=== PATIENT | male | born 1960 | race Caucasian/White ===

== ENCOUNTER → 2016-06-26 | Outpatient (CLI) | payer BC ==
[~2016-06-26] MED LIST: REGADENOSON 0.4 MG/5 ML DISP.SYRIN. IV ONE
== END | disposition home or self-care (01) ==
LOC: PCVCIMAG 08:04
PROVIDERS: ATTEND Internal Medicine Cardiovascular Disease
DX: I25.10 Atherosclerotic heart disease of native coronary artery without angina pectoris (principal); I25.2 Old myocardial infarction; R07.9 Chest pain, unspecified; I10 Essential (primary) hypertension
CPT/HCPCS: 78452; 93017; A9500; G0463; J2785

== ENCOUNTER → 2018-08-30 | Outpatient (CLI) | payer BC ==
--- NOTE | 2018-08-30 13:42 | PCVCIMAG ---
APPROVED REPORT Study performed: 08/30/2018 12:54:03 EXAM: Comprehensive 2D, Doppler, and color-flow Echocardiogram Patient Location: Echo lab Status: routine BSA: 2.22 HR: 80 bpmBP: 122/80 mmHg Rhythm: NSR Other Information Study Quality: Adequate Risk Factors: Cardiac Risk Factors: HTN, hlp Indications CAD 2D Dimensions IVSd: 10.65 (7-11mm) LVDd: 51.05 mm PWd: 10.14 (7-11mm)Ascending Ao: 30.47 (22-36mm) LVDs: 38.08 (25-40mm) Left Atrium: 45.20 (27-40mm) Aortic Root: 30.99 mm LV Single Plane 4CH: 60.61 % LV Single Plane 2CH: 69.12 % Biplane EF: 63.9 % Volumes Left Atrial Volume (Systole) Single Plane 4CH: 71.59 mLSingle Plane 2CH: 85.39 mL LA ESV Index: 37.00 mL/m2 Aortic Valve AoV Peak Ozzy.: 1.62 m/s AO Peak Gr.: 10.43 mmHgLVOT Max P.51 mmHg LVOT Max V: 1.17 m/s Mitral Valve E/A Ratio: 1.7 MV Decel. Time: 188.03 ms MV E Max Ozzy.: 0.88 m/s MV A Ozzy.: 0.53 m/s IVRT: 65.74 ms Pulmonary Valve PV Peak Ozzy.: 1.12 m/sPV Peak Gr.: 5.03 mmHg Pulmonary Vein P Vein S: 0.39 m/sP Vein A: 0.42 m/s P Vein D: 0.55 m/sP Vein A Dur.: 114.2 msec P Vein S/D Ratio: 0.71 Tricuspid Valve TR Peak Ozzy.: 2.63 m/s TR Peak Gr.: 27.76 mmHg Left Ventricle The left ventricle is normal size. There is normal LV segmental wall motion. There is normal left ventricular wall thickness. Left ventricular systolic function is normal. The left ventricular ejection fraction is within the normal range. LVEF is 60-65%. Grade I - abnormal relaxation pattern. Right Ventricle The right ventricle is normal size. The right ventricular systolic function is normal. Atria Left atrium is mildly dilated. Right atrium is mildly dilated. Aortic Valve The aortic valve is normal in structure. No aortic regurgitation is present. There is no aortic valvular stenosis. Mitral Valve The mitral valve is normal in structure. Mild mitral regurgitation. No evidence of mitral valve stenosis. Tricuspid Valve The tricuspid valve is normal in structure. Mild tricuspid regurgitation with PAP of 35 mmHg. Pulmonic Valve The pulmonary valve is normal in structure. Trace pulmonic regurgitation. Great Vessels The aortic root is normal in size. IVC is normal in size and collapses >50% with inspiration. Pericardium There is no pericardial effusion. There is no pleural effusion. <Conclusion> The left ventricle is normal size. There is normal left ventricular wall thickness. Left ventricular systolic function is normal. Grade I - abnormal relaxation pattern. The right ventricle is normal size. Left atrium is mildly dilated. Right atrium is mildly dilated. The aortic valve is normal in structure. Mild mitral regurgitation. Mild tricuspid regurgitation with PAP of 35 mmHg.
== END | disposition home or self-care (01) ==
LOC: PCVCIMAG 12:48
PROVIDERS: ATTEND Internal Medicine Cardiovascular Disease
DX: I08.1 Rheumatic disorders of both mitral and tricuspid valves (principal); I25.10 Atherosclerotic heart disease of native coronary artery without angina pectoris; I10 Essential (primary) hypertension
CPT/HCPCS: 93306

== ENCOUNTER → 2019-02-22 | Outpatient (CLI) | payer BC ==
--- NOTE | 2019-02-22 15:48 | PCVCIMAG ---
APPROVED REPORT Study performed: 02/22/2019 14:24:28 Exam: Stress Echocardiogram Indication: CAD s/p PCI,Stent to RCA,, Dyspnea Patient Location: Echo lab Stress Nurse: Gala Benavidez RN Room #: 2 Status: routine Ht: 5 ft 11 in HR: 75 bpm BP: 142/86 mmHg Rhythm: NSR Medical History Medical History: CAD s/p stent, HTN, Hyperlipidemia Cardiac Risk Factors: HTN, Hyperlipidemia, FHX of CAD Previous Cardiac Procedures: PCI Pretest Chest Pain Characteristics: No chest pain Exercise History: Physically active Procedure The patient underwent an Exercise Stress Test using the Parviz Protocol. Blood pressure, heart rate, and EKG were monitored. An Echocardiogram was performed by emergency medical technician/driver in four stages in quad fashion. At peak stress, four selected images were obtained and placed side by side with resting images for comparison. Stress Test Details Stress Test: Exercise stress testing was performed using a Parviz protocol. HR Resting HR: 75 bpmMax Heart Rate (APMHR): 160 bpm Max HR Achieved: 160 bpmTarget HR (85% APMHR): 136 bpm % of APMHR: 100 Recovery HR: 106 bpm HR response to stress: Normal HR response to stress BP Resting BP: 142/86 mmHg Max BP: 180/80 mmHg Recovery BP: 140/82 mmHg BP response to stress: Normal blood pressure response to stress. ECG Resting ECG: Sinus Rhythm, NSSTT changes Stress ECG: Sinus Rhythm, NSSTT changes ST Change: Non-ischemic Arrhythmia: frequent PVCs,occ couplets Recovery ECG: Sinus Rhythm, NSSTT changes Recovery ST Change: Non-ischemic Recovery ST Deviation: -0.35 mm Recovery Arrhythmia: occ isolated PVCs,one short run VT Clinical Reason for Termination: Maximal effort Stress Symptoms: fatigue Exercise duration: 9 min 59 sec Highest Stage Achieved: Stage 4: 4.2 mph at 16% grade. Exercise capacity: 13.3 METs Overall Exercise Capacity for Age: Good Scale: Active Angina Score: None No complications. Pre-Stress Echo The resting Echocardiogram showed normal left ventricular contractility with an estimated Ejection Fraction of about 55%. Mild inferior hypokinesis. Post-Stress Echo The stress Echocardiogram showed normal left ventricular contractility with an estimated Ejection Fraction of about 60%. Pronounced inferior hypokinesis and LV dilatation. Clinical No clinical or ECG evidence for ischemia. Conclusion Clinical Response: Non-ischemic Exercise Capacity: Above average Stress ECG Response: Non-ischemic Stress Echo Images: Ischemic
== END | disposition home or self-care (01) ==
LOC: PCVCIMAG 14:03
PROVIDERS: ATTEND Internal Medicine Cardiovascular Disease
DX: I25.10 Atherosclerotic heart disease of native coronary artery without angina pectoris (principal); R06.00 Dyspnea, unspecified; I10 Essential (primary) hypertension; E78.00 Pure hypercholesterolemia, unspecified; K21.9 Gastro-esophageal reflux disease without esophagitis; E78.5 Hyperlipidemia, unspecified; I25.2 Old myocardial infarction; Z87.891 Personal history of nicotine dependence; Z88.8 Allergy status to other drugs, medicaments and biological substances; Z79.899 Other long term (current) drug therapy; Z72.89 Other problems related to lifestyle
CPT/HCPCS: 93325; 93351